=== PATIENT | male | born 1965 | race Caucasian/White ===

== ENCOUNTER 2020-11-08 05:16 | Day surgery (SDC) | payer OTHER ==
[~2020-11-08] VITALS: Ht 172.7 cm; Wt 88.5 kg
--- NOTE | ~2020-11-08 | OP ---
PATIENT NAME: SOHAIL VALENTINE JR MEDICAL RECORD: [id number] :67 LOCATION:[facility] ADMISSION DATE: SURGEON: ARLEN WHITTEN MD DATE OF OPERATION: 11/08/2020 PREOPERATIVE DIAGNOSES: 1. Left knee pain. 2. Medial meniscus tear. 3. Chondromalacia. POSTOPERATIVE DIAGNOSES: 1. Left knee pain. 2. Medial meniscus tear. 3. Chondromalacia. PROCEDURE PERFORMED: Left knee scope with partial medial meniscectomy, chondroplasty and limited synovectomy. INDICATIONS FOR THE PROCEDURE: Mr. Valentine is a 55-year-old male with history of left knee pain and mechanical symptoms. We have been attempting to treat this conservatively, but he continues to have pain, which is limiting his activity. He has elected to proceed with surgery for knee arthroscopy. Risks, benefits and alternatives of surgery were discussed with the patient and consent was obtained. DESCRIPTION OF PROCEDURE: The patient was met in the holding area where his identity and confirmation of the procedure was performed. Left lower extremity was marked. He was taken to the operating room where he was placed supine on the operating table and anesthesia was administered. A tourniquet was applied to the left thigh and the left leg was positioned in the leg gifford. Left lower extremity was prepped and draped in a sterile fashion. The patient received preoperative antibiotics and timeout was performed before initiating the case. On initiation of the case, the leg was exsanguinated and the tourniquet was raised. Total tourniquet time was 45 minutes. We began with placement of our superior medial portal, I inserted the cannula and filled the knee with fluid. We then placed our anterior lateral portal, inserted the camera and placed our anterior medial portal under direct visualization. Diagnostic knee arthroscopy was performed. There was extensive synovitis throughout the knee. Grade I chondromalacia at the undersurface of the patella with a large bone spur at the inferior pole. There was a grade IV chondromalacia with osteochondral defect at the central trochlear groove. The medial and lateral gutters were clear. Grade III chondromalacia of the medial femoral condyle and grade I of the medial tibial plateau. There was a tear in the posterior horn of the medial meniscus. The ACL was intact. The lateral compartment showed grade I chondromalacia of the lateral tibial plateau. The meniscus and femoral condyle were in good condition. The compartment did appear to be smaller than normal. We then moved to the medial compartment, performed a partial medial meniscectomy using biter and shaver. Chondroplasty was also performed of the medial femoral condyle. We then moved to the patellofemoral compartment, performed a limited synovectomy at the tissues of the anterior knee and the infrapatellar fat pad. It appeared to be a plica extending all the way across, medial in the anterior knee that was partially excised. With adequate exposure, we were able to better visualize the bone spur at the inferior pole of the patella, appeared to be abrading the trochlea and this was debrided with the shaver. Chondroplasty was also performed at the trochlear groove. Before and after images were obtained and OPERATIVE REPORT [id number] SOHAIL VALENTINE JR this completed our procedure. Instruments were removed and fluid was drained from the knee. The portal sites were infiltrated with 0.25% Marcaine with epinephrine. These were then closed with nylon suture. A sterile dressing was applied. The patient was turned back over to anesthesia where he was awakened, extubated, and taken to recovery room in stable condition. POSTOPERATIVE PLAN: The patient is going to return home with his family today. He can be weightbearing as tolerated on the left lower extremity, but needs to avoid a lot of standing and physical activity for the next couple of weeks. Plan to start physical therapy next week. We will see him back in clinic in 2 weeks. ANESTHESIA: General. COMPLICATIONS: None. ESTIMATED BLOOD LOSS: 5 mL. TRANSINT:[id number] Voice Confirmation ID: [id number] DOCUMENT ID: [id number] ARLEN WHITTEN MD CC: [id number] DICTATION DATE: 11/08/2050 BANDOLEER PACKER: 11/08/20 1056 [facility] [address] [place] [address]
[~2020-11-08 05:16] MED LIST: MOBIC7.5 MG PO
[2020-11-08 06:47] VITALS: BP 132/73; Ht 172.7 cm; Wt 88.5 kg
--- NOTE | 2020-11-08 10:47 | NUR ---
DENIES PAIN/NEEDS AT THIS TIME. WILL CONTINUE TO MONITOR.
--- NOTE | 2020-11-08 11:09 | NUR ---
DC INSTRUCTIONS GIVEN TO PT. STATES UNDERSTANDING. DC'D IV CATH FULLY INTACT. WILL DC SHORTLY.
--- NOTE | 2020-11-08 11:24 | NUR ---
PT LEFT UNIT VIA WC AT 1112
== END 2020-11-08 11:19 | disposition home or self-care (01) ==
LOC: D.OPS 05:16
PROVIDERS: ATTEND Orthopaedic Surgery
DX: S83.232A Complex tear of medial meniscus, current injury, left knee, initial encounter (principal); X58.XXXA Exposure to other specified factors, initial encounter; M25.562 Pain in left knee; M94.262 Chondromalacia, left knee